=== PATIENT | female | born 1950 ===

== ENCOUNTER 2017-04-28 09:25 | Emergency (ER) | payer MEDICARE, OTHER ==
[2017-04-28 09:46] VITALS: BP 180/82
--- NOTE | 2017-04-28 10:32 | UC ---
Lower Extremity/Ankle HPI - HPI Summary HPI Summary: 66 yo female with right foot pain and swelling x 1 week no trauma pain with wt bearing some relief with motrin - History of Current Complaint Chief Complaint: UCLowerExtremity Stated Complaint: SWOLLEN FOOT Time Seen by Provider: 04/28/17 10:24 Hx Obtained From: Patient Onset/Duration: Gradual Onset, Lasting Weeks Severity Initially: Mild Severity Currently: Moderate Pain Intensity: 6 - with wt bearing Pain Scale Used: 0-10 Numeric Alleviating Factor(s): Rest, Elevation Able to Bear Weight: Yes - Allergies/Home Medications Allergies/Adverse Reactions: Allergies Allergy/AdvReac Type Severity Reaction Status Date / Time No Known Allergies Allergy Verified 04/28/17 09:46 PMH/Surg Hx/FS Hx/Imm Hx Previously Healthy: Yes - hx of sepsis about a yr ago - Surgical History Surgical History: Yes Surgery Procedure, Year, and Place: neck - Family History Known Family History: Positive: Other - DJD - Social History Alcohol Use: None Substance Use Type: None Smoking Status (MU): Heavy Every Day Tobacco Smoker Type: Cigarettes Amount Used/How Often: 1 ppd Review of Systems Constitutional: Negative Skin: Negative Eyes: Negative ENT: Negative Respiratory: Negative Cardiovascular: Negative Gastrointestinal: Negative Genitourinary: Negative Motor: Negative Neurovascular: Negative Musculoskeletal: Arthralgia Neurological: Negative Psychological: Negative Is Patient Immunocompromised?: No All Other Systems Reviewed And Are Negative: Yes Physical Exam Triage Information Reviewed: Yes Appearance: Well-Appearing, No Pain Distress, Well-Nourished Vital Signs: Initial Vital Signs Temp 98.7 F 04/28/17 09:39 Pulse 79 04/28/17 09:39 Resp 20 04/28/17 09:39 BP 180/82 04/28/17 09:39 Pulse Ox 99 04/28/17 09:39 Vital Signs Reviewed: Yes Eyes: Positive: Conjunctiva Clear ENT: Positive: Hearing grossly normal. Negative: Nasal congestion, Nasal drainage, Muffled/hoarse voice Neck: Positive: Supple, Nontender, No Lymphadenopathy Respiratory: Positive: Lungs clear, Normal breath sounds, No respiratory distress Cardiovascular: Positive: RRR, No Murmur Musculoskeletal: Positive: ROM Intact, No Edema Neurological Exam: Normal Psychological Exam: Normal Skin Exam: Normal Lower Extremity Course/Dx - Differential Dx/Diagnosis Provider Diagnoses: Right foot pain. DJD. overuse injury. elevated BP Discharge - Discharge Plan Condition: Stable Disposition: HOME Prescriptions: Meloxicam [Mobic] 15 mg PO DAILY #14 tab Patient Education Materials: Foot Sprain (ED) Referrals: No Primary Care Phys,NOPCP [Primary Care Provider] - [facility] [Outside] (you BP needs to be followed up and addressed)
--- NOTE | 2017-04-28 10:55 | RAD ---
Indication: 1 week RIGHT mid foot pain and swelling without proceeding injury. Comparison: No relevant prior exams available on the [facility] for comparison. Technique: AP, lateral, and oblique views RIGHT foot. REPORT AND IMPRESSION: Bone density appears decreased throughout. Negative for fracture or dislocation. Mild second through fifth hammertoe deformities. Mild osteoarthritis most prominent at the first metatarsal phalangeal joint and talocrural joint. Moderate Achilles tendon insertion and plantar fascia origin bone spurs. Mild nonfocal soft tissue swelling.
== END 2017-04-28 11:15 | disposition home or self-care (01) ==
LOC: UCEAST 09:25
DX: M70.871 Other soft tissue disorders related to use, overuse and pressure, right ankle and foot (principal); Y93.9 Activity, unspecified; M79.671 Pain in right foot; R03.0 Elevated blood-pressure reading, without diagnosis of hypertension; F17.210 Nicotine dependence, cigarettes, uncomplicated
CPT/HCPCS: 99203; G0463